=== PATIENT | male | born 1985 | race Two or more races ===

== ENCOUNTER 2018-04-10 13:10 | Outpatient (CLI) | payer OTHER | END 2018-04-10 14:00 | disposition home or self-care (01) | LOC: NUCLEAR 13:10 | DX: C73 Malignant neoplasm of thyroid gland (principal) | CPT/HCPCS: 79005; A9517 ==

== ENCOUNTER 2018-04-17 15:00 | Outpatient (CLI) | payer OTHER | END 2018-04-17 15:05 | disposition home or self-care (01) | LOC: NUCLEAR 15:00 | DX: C73 Malignant neoplasm of thyroid gland (principal) ==

== ENCOUNTER 2018-05-18 10:58 | Outpatient (CLI) | payer OTHER | END 2018-05-18 11:03 | disposition home or self-care (01) | LOC: LAB 10:58 | DX: C73 Malignant neoplasm of thyroid gland (principal); E89.0 Postprocedural hypothyroidism ==

== ENCOUNTER → 2019-04-24 10:18 | Outpatient (CLI) | payer OTHER | END | disposition home or self-care (01) | LOC: LAB 10:18 | DX: C73 Malignant neoplasm of thyroid gland (principal); E89.0 Postprocedural hypothyroidism ==

== ENCOUNTER → 2019-04-27 | Outpatient (CLI) | payer OTHER | END | disposition home or self-care (01) | LOC: NUCLEAR 11:50 | DX: C73 Malignant neoplasm of thyroid gland (principal) | CPT/HCPCS: 79005; A9517 ==

== ENCOUNTER 2019-08-18 08:36 | Outpatient (CLI) | payer OTHER | END 2019-08-18 14:24 | disposition home or self-care (01) | LOC: LAB 08:36 | DX: E03.8 Other specified hypothyroidism (principal); C73 Malignant neoplasm of thyroid gland; E11.65 Type 2 diabetes mellitus with hyperglycemia; E55.9 Vitamin D deficiency, unspecified ==

== ENCOUNTER → 2019-12-17 13:03 | Outpatient (CLI) | payer OTHER | END | disposition home or self-care (01) | LOC: LAB 13:03 | DX: E04.1 Nontoxic single thyroid nodule (principal); E03.8 Other specified hypothyroidism; E11.65 Type 2 diabetes mellitus with hyperglycemia; E55.9 Vitamin D deficiency, unspecified ==

== ENCOUNTER → 2020-09-24 08:35 | Outpatient (CLI) | payer OTHER | END | disposition home or self-care (01) | LOC: LAB 08:35 | PROVIDERS: ATTEND Internal Medicine Sports Medicine | DX: E03.8 Other specified hypothyroidism (principal); C73 Malignant neoplasm of thyroid gland; D64.89 Other specified anemias; E11.9 Type 2 diabetes mellitus without complications; E78.2 Mixed hyperlipidemia; E11.638 Type 2 diabetes mellitus with other oral complications; E55.9 Vitamin D deficiency, unspecified ==

== ENCOUNTER 2021-01-15 10:16 | Outpatient (CLI) | payer OTHER | END 2021-01-15 10:25 | disposition home or self-care (01) | LOC: LAB 10:16 | PROVIDERS: ATTEND Internal Medicine Sports Medicine | DX: C73 Malignant neoplasm of thyroid gland (principal); E89.0 Postprocedural hypothyroidism ==

== ENCOUNTER 2021-05-02 09:06 | Outpatient (CLI) | payer OTHER | END 2021-05-02 09:17 | disposition home or self-care (01) | LOC: LAB 09:06 | DX: I11.9 Hypertensive heart disease without heart failure (principal); R78.5 Finding of other psychotropic drug in blood ==

== ENCOUNTER → 2021-08-25 11:48 | Outpatient (CLI) | payer OTHER | END | disposition home or self-care (01) | LOC: LAB 11:48 | PROVIDERS: ATTEND Internal Medicine | DX: E03.8 Other specified hypothyroidism (principal); E11.65 Type 2 diabetes mellitus with hyperglycemia; E78.49 Other hyperlipidemia; I11.9 Hypertensive heart disease without heart failure; E11.9 Type 2 diabetes mellitus without complications ==

== ENCOUNTER 2021-11-20 11:42 | Outpatient (CLI) | payer OTHER | END 2021-11-20 11:56 | disposition home or self-care (01) | LOC: LAB 11:42 | PROVIDERS: ATTEND Internal Medicine | DX: E03.8 Other specified hypothyroidism (principal); E11.65 Type 2 diabetes mellitus with hyperglycemia; E11.9 Type 2 diabetes mellitus without complications; E78.49 Other hyperlipidemia; I11.9 Hypertensive heart disease without heart failure ==

== ENCOUNTER → 2022-01-21 06:13 | Outpatient (CLI) | payer OTHER | END | disposition home or self-care (01) | LOC: LAB 06:13 | PROVIDERS: ATTEND Internal Medicine Sports Medicine | DX: C73 Malignant neoplasm of thyroid gland (principal); E89.0 Postprocedural hypothyroidism; E03.9 Hypothyroidism, unspecified ==

== ENCOUNTER 2022-04-08 10:01 | Outpatient (CLI) | payer OTHER | END 2022-04-08 10:02 | disposition home or self-care (01) | LOC: LAB 10:01 | PROVIDERS: ATTEND Internal Medicine | DX: I11.9 Hypertensive heart disease without heart failure (principal); E13.9 Other specified diabetes mellitus without complications; E11.9 Type 2 diabetes mellitus without complications; M81.0 Age-related osteoporosis without current pathological fracture ==